=== PATIENT | female | born 1990 | race Caucasian/White ===

== ENCOUNTER 2022-06-25 11:33 | Emergency (ER) | payer OTHER ==
[~2022-06-25] VITALS: Ht 149.9 cm; Wt 48.6 kg
[2022-06-25] MEDS ORDERED: ACETAMINOPHEN 325 MG TAB PO ONE (11:55)
[2022-06-25] MEDS ORDERED: MULTTAB20 PO (11:56)
[2022-06-25 15:00] VITALS: BP 132/78
== END 2022-06-25 15:12 | disposition home or self-care (01) ==
LOC: EDBD 11:33 → M ED 11:33
DX: O9A.211 Injury, poisoning and certain other consequences of external causes complicating pregnancy, first trimester (principal); S62.396A Other fracture of fifth metacarpal bone, right hand, initial encounter for closed fracture; S70.311A Abrasion, right thigh, initial encounter; V49.49XA Driver injured in collision with other motor vehicles in traffic accident, initial encounter; Y92.410 Unspecified street and highway as the place of occurrence of the external cause; Z3A.01 Less than 8 weeks gestation of pregnancy; Z88.0 Allergy status to penicillin

== ENCOUNTER 2023-02-21 17:15 | Inpatient (IN) | payer OTHER ==
[~2023-02-21] VITALS: Ht 149.9 cm; Wt 63.8 kg
[~2023-02-21 17:15] MED LIST: MULTTAB20 PO
[2023-02-21] MEDS ORDERED: TUMS750C5 PO (17:37)
[2023-02-21] MEDS ORDERED: HOME MED LIST COMPLETE! XX SCH (17:40)
[2023-02-21 17:46] VITALS: BP 140/91
[2023-02-21] MEDS ORDERED: LIDOCAINE 1% MDV 20ML VIAL INFIL PRN (18:40)
[2023-02-21] MEDS ORDERED: miSOPROStol 25MCG 1/4 TABLET PO ONE (18:40)
[2023-02-21] MEDS ORDERED: METHYLERGONOVINE MALEATE 0.2MG/ML 1ML VIAL IM PRN (18:40)
[2023-02-21] MEDS ORDERED: miSOPROStol 50MCG 1/2 TABLET PO PRN (18:40)
[2023-02-21] MEDS ORDERED: TRANEXAMIC ACID INJection 1,000 MG in NS 100 ML IV PRN (18:40)
[2023-02-21] MEDS ORDERED: CARBOPROST TROMETHAMINE 250 MCG/ML AMP IM PRN (18:40)
[2023-02-21] MEDS ORDERED: OXYTOCIN INJ 10UNITS/ML 1ML VIAL IM PRN (18:40)
[2023-02-21] MEDS ORDERED: OXYTOCIN DRIP 30 UNITS in IV 1 EA IV PRN ×4 (18:40)
[2023-02-21 19:13] LABS: HEMATOCRIT 34.4 % (36.0-47.0); HEMOGLOBIN 11.3 g/dl (12.0-15.5); MEAN CORPUSCULAR HEMOGLOBIN 29.3 pg (27.0-33.0); MEAN CORPUSCULAR HGB CONC 32.8 g/dl (32.0-36.5); MEAN CORPUSCULAR VOLUME 89.1 fl (80.0-96.0); PLATELET COUNT, AUTOMATED 160 10^3/uL (150-450); RED BLOOD COUNT 3.86 10^6/uL (4.00-5.40); WHITE BLOOD COUNT 9.7 10^3/uL (4.0-10.0)
[2023-02-21 19:17] LABS: TOTAL PROTEIN,RANDOM URINE 9.3 MG/DL (0.0-14.0)
[2023-02-21 19:22] LABS: CREATININE,RANDOM URINE 22.9 MG/DL
[2023-02-21] MEDS: CLINDAMYCIN 900 MG in IV 1 EA IV SCH (19:22)
[2023-02-21] MEDS: LR 1,000 ML IV SCH (19:22)
[2023-02-21 19:40] LABS: URIC ACID 5.9 MG/DL (3.1-7.8)
[2023-02-21 19:42] LABS: LDH LACTATE DEHYDROGENASE 174 U/L (120-246)
[2023-02-21 19:43] LABS: ALT/SGPT 12 U/L (7.0-40); AST/SGOT 21 U/L (<34); BILIRUBIN,TOTAL 0.9 MG/DL (0.3-1.2); GLOMERULAR FILTRATION RATE > 60.0 (>60)
[2023-02-21 20:01] VITALS: BP 147/88
[2023-02-21] MEDS ORDERED: miSOPROStol 25MCG 1/4 TABLET PO PRN (20:55)
[2023-02-21 21:04] VITALS: BP 138/89
[2023-02-21 22:32] VITALS: BP 130/83
[2023-02-21 23:43] VITALS: BP 145/83
[2023-02-22] VITALS (46 sets, daily range): BP systolic 119–159; BP diastolic 63–106
[2023-02-22] MEDS ORDERED: CLINDAMYCIN 900MG/50ML PREMIX BAG As Ordered ONE (03:06)
[2023-02-22] MEDS: CLINDAMYCIN 900 MG in IV 1 EA IV SCH ×2 (03:10→12:00)
[2023-02-22] MEDS ORDERED: diphenhydrAMINE 50MG/ML VIAL IV PRN (03:55)
[2023-02-22] MEDS ORDERED: LR 500 ML IV PRN (03:55)
[2023-02-22] MEDS ORDERED: EPIDURAL/PCA KEYS XX PRN (03:55)
[2023-02-22] MEDS ORDERED: NALOXONE INJ 0.4MG/1ML VIAL IV PRN (03:55)
[2023-02-22] MEDS ORDERED: ePHEDrine SULFATE 25 MG/5 ML(5MG/ML) SYRINGE IVP PRN (03:55)
[2023-02-22] MEDS ORDERED: ONDANSETRON 4MG 2ML VIAL IV PRN (03:55)
[2023-02-22] MEDS ORDERED: REFLB XX ONE ×2 (04:01→11:21)
[2023-02-22] MEDS: FENTANYL/ROPIVACAINE/NACL BAG 100 ML EPIDURAL SCH ×2 (04:03→11:23)
[2023-02-22] MEDS: LR 1,000 ML IV SCH ×3 (04:12→18:40)
[2023-02-22] MEDS: OXYTOCIN DRIP 30 UNITS in IV 1 EA IV SCH (05:20)
[2023-02-22] MEDS ORDERED: ACETAMINOPHEN TAB 650MG DOSE (2X325MG) PO PRN (15:25)
[2023-02-22] MEDS ORDERED: RHOGAM 300MCG (1500IU) INJ IM SCH (15:25)
[2023-02-22] MEDS ORDERED: DIBUCAINE 1% OINTMENT 30GM TOP PRN (15:25)
[2023-02-22] MEDS ORDERED: METHYLERGONOVINE MALEATE 0.2 MG TAB PO PRN (15:25)
[2023-02-22] MEDS ORDERED: DOCUSATE SODIUM 100MG CAPSULE PO PRN (15:25)
[2023-02-22] MEDS ORDERED: OXYTOCIN DRIP 30 UNITS in IV 1 EA IV SCH (15:25)
[2023-02-22] MEDS ORDERED: CLINDAMYCIN 900 MG in IV 1 EA IV ONE (16:15)
[2023-02-22] MEDS ORDERED: D5W IV ONE (16:45)
[2023-02-22] MEDS ORDERED: GENTAMICIN IV ONE (16:45)
[2023-02-22] MEDS: IBUPROFEN 800 MG TAB PO PRN (21:21)
[2023-02-23 06:00] VITALS: BP 134/84
[2023-02-23] MEDS: OXYTOCIN DRIP 30 UNITS in IV 1 EA IV SCH (08:47)
[2023-02-23] MEDS: PRENATAL VITAMINS CHEWABLE TABLET PO SCH (10:36)
[2023-02-23] MEDS: IBUPROFEN 800 MG TAB PO PRN (15:18)
[2023-02-23 18:00] VITALS: BP 137/88
[2023-02-24 06:00] VITALS: BP 123/85
[2023-02-24] MEDS ORDERED: MEASLES,MUMPS,RUBELLA VACCINE INJ (MMR-II) SC.IMMUN ONE (09:00)
[2023-02-24] MEDS: PRENATAL VITAMINS CHEWABLE TABLET PO SCH (09:01)
== END 2023-02-24 11:30 | disposition home or self-care (01) | DRG 805 ==
LOC: M LDI 17:15 → M OBS 02-22 18:07
PROVIDERS: ADMIT Obstetrics & Gynecology; ATTEND Registered Nurse
PROC: 3E0P7GC Introduction of Other Therapeutic Substance into Female Reproductive, Via Natural or Artificial Opening (ICD-10-PCS; 2023-02-21)
PROC: 10E0XZZ Delivery of Products of Conception, External Approach (ICD-10-PCS; principal; 2023-02-22)
PROC: 0KQM0ZZ Repair Perineum Muscle, Open Approach (ICD-10-PCS; 2023-02-22)
PROC: 0HQ9XZZ Repair Perineum Skin, External Approach (ICD-10-PCS; 2023-02-22)
DX: O14.04 Mild to moderate pre-eclampsia, complicating childbirth (principal); Z37.0 Single live birth; O41.1230 Chorioamnionitis, third trimester, not applicable or unspecified; O99.824 Streptococcus B carrier state complicating childbirth; Z3A.39 39 weeks gestation of pregnancy; O76 Abnormality in fetal heart rate and rhythm complicating labor and delivery; O69.81X0 Labor and delivery complicated by cord around neck, without compression, not applicable or unspecified; O64.5XX0 Obstructed labor due to compound presentation, not applicable or unspecified; O77.0 Labor and delivery complicated by meconium in amniotic fluid; O70.1 Second degree perineal laceration during delivery; O70.0 First degree perineal laceration during delivery